=== PATIENT | male | born 1945 | race Caucasian/White ===

== ENCOUNTER 2016-11-18 11:18 | Inpatient (IN) | payer MEDICARE, OTHER ==
[2016-10-26 10:55] VITALS: BMI 26.3
[2016-10-26 11:51] VITALS: BP_SYST 128; RESP 20; TEMP 98.6
[2016-11-12 11:57] VITALS: BP_SYST 128; RESP 20; TEMP 98.6
[2016-11-12 11:58] VITALS: BMI 27.1
[2016-11-18] VITALS (21 sets, daily range): BP systolic 99–144; RESP 11–19; TEMP 97.1–97.9; Ht 160 cm; Wt 69.4 kg
[~2016-11-18] VITALS: Ht 160 cm; Wt 69.4 kg
[~2016-11-18 11:18] MED LIST: BACITRACIN 50,000 UNITS INJ IRRIG ONE; BUPIVACA/EPI 0.5% 50ML NERVEBLOCK ONE; DEXAMETHASONE 4 MG/ML VIAL IV ONE; DILAUDID 1 MG/ML AMP IV ONE; FENTANYL 100 MCG/2 ML AMP IV ONE; GELATIN SPONGE 12 CM2 TOPICAL ONE; GLYCOPYRROLATE 0.2 MG/ML VIAL IV ONE; LIDOCAINE 2% SYR 5 ML IV ONE; NEOSTIGMINE 10 MG/10 ML VIAL IV ONE; PROPOFOL 20 ML PER ML IV ONE; ROCURONIUM 50 MG VIAL IV ONE; THROMBIN 5000 UNIT KIT TOPICAL ONE
[2016-11-18] MEDS ORDERED: CEFAZOLIN 2,000 MG in SODIUM CHLORIDE 0.9% 100 ML IV ONE (11:20)
[2016-11-18] MEDS ORDERED: SCOPOLAMINE PATCH TRANSDERM ONE (11:25)
[2016-11-18] MEDS ORDERED: LIDOCAINE 1% BUFFERED 1 ML SYR INTRADERM PRN (11:25)
[2016-11-18] MEDS ORDERED: LACT RINGERS 1,000 ML IV SCH (11:25)
[2016-11-18] MEDS ORDERED: MIDAZOLAM 2 MG/2 ML INJ IV ONE (11:25)
[2016-11-18] MEDS ORDERED: GLYCOPYRROLATE 0.2 MG/ML VIAL IV ONE (11:25)
[2016-11-18] MEDS ORDERED: ONDANSETRON 4 MG VIAL IV ONE (11:25)
[2016-11-18] MEDS ORDERED: MORPHINE 2 MG/ML SYR IV PRN ×2 (14:30→15:50)
[2016-11-18] MEDS ORDERED: ONDANSETRON 4 MG VIAL IV PRN ×2 (14:30→15:50)
[2016-11-18] MEDS ORDERED: MEPERIDINE 25 MG/ML IV PRN (14:30)
[2016-11-18] MEDS ORDERED: OXYCODONE 5 MG TAB PO PRN (14:30)
[2016-11-18] MEDS ORDERED: MORPHINE 4 MG/ML SYR IV PRN ×2 (14:30→15:50)
[2016-11-18] MEDS ORDERED: ACETAMINOPHEN 325 MG TAB PO PRN (15:50)
[2016-11-18] MEDS ORDERED: CHLORASEPTIC 180 ML BTL PO PRN (15:50)
[2016-11-18] MEDS ORDERED: SODIUM CHLORIDE 0.9% 1,000 ML IV SCH (15:50)
[2016-11-18] MEDS ORDERED: OXYCODONE/APAP 5/325 TAB PO PRN ×2 (15:50)
[2016-11-18] MEDS ORDERED: CYCLOBENZAPRINE 10 MG TAB PO PRN (15:50)
[2016-11-18] MEDS ORDERED: PHENobarbital 30 MG TAB PO SCH (15:50)
[2016-11-18] MEDS: DILAUDID 1 MG/ML AMP IV PRN ×2 (16:12→16:21)
[2016-11-18] MEDS: CEFAZOLIN 2,000 MG in SODIUM CHLORIDE 0.9% 100 ML IV SCH (17:34)
[2016-11-18] MEDS ORDERED: TAMSULOSIN 0.4 MG CAP PO SCH (21:00)
[2016-11-18] MEDS ORDERED: Atorvastatin 40 MG TAB PO SCH (21:00)
[2016-11-18] MEDS: DOCUSATE SOD 100 MG CAP PO SCH (21:36)
[2016-11-18] MEDS: LISINOPRIL 2.5 MG TAB PO SCH ×2 (21:36→21:47)
[2016-11-18] MEDS: METFORMIN 500 MG TAB PO SCH ×2 (21:37→21:48)
[2016-11-19] MEDS: CEFAZOLIN 2,000 MG in SODIUM CHLORIDE 0.9% 100 ML IV SCH ×2 (00:26→08:11)
[2016-11-19 03:38] VITALS: BP_SYST 106; RESP 16; TEMP 97.8
[2016-11-19 07:10] VITALS: BP_SYST 105; RESP 18; TEMP 98.1
[2016-11-19] MEDS: MULTIVITS/MINERALS (THERAGRAN M) TAB PO SCH ×2 (08:13→08:20)
[2016-11-19] MEDS: DOCUSATE SOD 100 MG CAP PO SCH (08:14)
[2016-11-19] MEDS ORDERED: FERROUS SULF 325 MG TAB PO SCH (09:00)
[2016-11-19 11:02] VITALS: BP_SYST 111; RESP 18; TEMP 97.9
[2016-11-19 15:09] VITALS: BP_SYST 135; RESP 18; TEMP 98
[2016-11-19 15:56] VITALS: BP_SYST 135; RESP 18; TEMP 98
[2016-11-21] MEDS ORDERED: REMOVE SCOPALAMINE PATCH XX ONE (11:25)
== END 2016-11-19 16:39 | disposition home or self-care (01) | DRG 473 ==
LOC: SDS 11:18 → ENPENDDIS 11:18 → 5THE 16:52
PROVIDERS: ADMIT Neurological Surgery; ATTEND Neurological Surgery
PROC: 01N10ZZ Release Cervical Nerve, Open Approach (ICD-10-PCS; 2016-11-18)
PROC: 0RG1070 Fusion of Cervical Vertebral Joint with Autologous Tissue Substitute, Anterior Approach, Anterior Column, Open Approach (ICD-10-PCS; principal; 2016-11-18 13:49)
CPT/HCPCS: 36415; 72040; 76001; 80048; 82947